=== PATIENT | male | born 1940 | race Caucasian/White ===

== ENCOUNTER 2019-09-13 20:29 | Inpatient (IN) ==
--- NOTE | 2019-09-13 20:48 | CT Scan Report ---
CT SCAN OF THE BRAIN WITHOUT IV CONTRAST CLINICAL HISTORY: Strokelike symptoms. COMPARISON STUDY: No priors. TECHNIQUE: Unenhanced axial CT scan of the brain is performed from the vertex to the skull base. A do se lowering technique was utilized adhering to the principles of ALARA. The patient was scanned twice due to motion artifact. The Examination is compromised by motion artifact. FINDINGS: Brain parenchyma: There are age-related involutional changes noting mild subcortical and periventric ular microangiopathic change. There is no hemorrhage, mass effect, or evidence of acute territorial i schemia by CT criteria. Estrada-white matter differentiation is preserved. No extra-axial fluid collecti on is seen. Ventricles, sulci, cisterns: Prominent secondary to involutional change. Intracranial vasculature: There is atherosclerotic calcification of the cavernous carotid and vertebr al arteries. Calvarium: Unremarkable. Sinuses and mastoids: Mild mucosal thickening is noted in the maxillary antra. The remaining visualiz ed paranasal sinuses are clear. The mastoid air cells are well pneumatized. Orbits: The bony orbits are grossly intact. IMPRESSION: There is no hemorrhage, mass effect, or evidence of acute territorial ischemia by CT azrat hector. ACT 112: Negative or not required by law. Electronically signed by: Sean Mccall M.D. 09/13/2019 8:47 PM
[2019-09-13] MEDS ORDERED: OPTIRAY 320 125ml IV PRN (20:49)
[2019-09-13] MEDS ORDERED: RACEPINEPHRINE 2.25% NEBU SOLN 0.5 ML VIAL NEB STA (20:51)
[2019-09-13 20:58] LABS: Hemoglobin 14.3 g/dL (14.0-18.0); Red Blood Count 4.78 M/uL (4.7-6.1); White Blood Count 9.66 K/uL (4.8-10.8)
--- NOTE | 2019-09-13 20:58 | Emergency Department Note ---
Impression & Plan Speech disturbance, Stroke-like symptoms, Difficulty swallowing, Hypertension, Gaze preference ED Provider Note NAME: IGOR YUEN AGE: 78 SEX: M : 1940 ARRIVES VIA: Ambulance INFORMANT: [Patient][ems] ED PROVIDER(S): [Sean Canales MD] CHIEF COMPLAINT: Possible stroke HISTORY OF PRESENT ILLNESS: The patient is a 78-year-old male who presents by EMS as a stroke alert. At 1944, about 1 hour ago, the patient suddenly had difficulty with speech. He was leaning to the right when he would stand. EMS was summoned and the patient was brought for evaluation. The patient states that he has been dizzy for several days. The speech issue though did not start until just prior to arrival. The patient also complains a headache that is moderate in severity. The patient does feel slightly short of breath. He has no arm or leg weakness. He has been in baseline health. There has been no abdominal pain or vomiting. No reported trauma. The patient does not take any blood thinners. No further history obtainable as the patient has very limited speech. Of note, the patient's did call in to talk with me. She states that the patient has been recently seeing a psychiatrist. He is on some new psychiatric medications, some of the meds are only a few days old. She is convinced that his medications have something to do with his presentation. REVIEW OF SYSTEMS: Unobtainable given the speech deficit/issue. PMHx/PSHx: See Below SOCIAL HISTORY: See Below. PHYSICAL EXAM: GENERAL: Patient is in mild distress, anxious HEENT: No acute trauma, normocephalic atraumatic, mucous membranes markedly dry, no nasal congestion, no scleral icterus. No throat erythema or exudate, no uvular edema. NECK: There is some occasional stridor with really deep inspiration, no adenopathy, no meningismus, trachea is midline. LUNGS: Clear to auscultation bilaterally, no wheeze, no rhonchi, breath sounds equal. HEART: Without murmurs gallops or rubs, regular rate and rhythm. ABDOMEN: Soft, nontender, bowel sounds positive, no hernias, no peritonitis. EXTREMITIES: No cyanosis or edema, full range of motion of all the joints without pain or difficulty, no signs for acute trauma. NEUROLOGIC: Oriented x 3, no acute motor or sensory deficits, no focal weakness. His speech is slurred and garbled. He seems hoarse. There is no facial droop. No extremity drift. The patient's gaze is to the right, he cannot look left. He does have some vertical nystagmus when looking up. SKIN: No rash, no jaundice, no diaphoresis. DIFFERENTIAL DIAGNOSIS: Infection, dehydration, metabolic abnormality, hypo/hyperglycemia, electrolyte disturbance, anemia, hypoxia, cardiac sources, intracerebral event, toxicologic, neurologic, uvular edema, pharyngitis, airway compromise, epiglottitis, vocal cord paralysis, as well as other pathologies. EMERGENCY DEPARTMENT COURSE/PROCEDURES: ECG: Indication was possible stroke. There is a normal sinus rhythm with a rate of 86. There is some artifact present. No ST elevation, no PVCs. QTC is 435. Continuous Cardiac Monitoring: An order was placed for continuous cardiac monitoring. The monitor shows a rate of 95 with normal sinus rhythm. Critical Care Note: I have personally spent greater than 55 minutes of critical care time in the direct management of this patient. This includes bedside care, interpretation of diagnostic studies, and testing, discussion with consultants, patient, and family members, and other required patient management activities. This 55 minutes is in excess of all separately billable procedures. MEDICAL DECISION MAKING: There is no leukocytosis or concerning anemia. No coagulopathy. No significant electrolyte abnormality or kidney failure. No worrisome liver enzyme elevation. EKG shows a sinus rhythm, no acute ischemia. Cardiac enzyme testing x1 is not consistent with acute cardiac injury. Urinalysis does not show infection. Brain CTA does not show acute bleed, there was no clot on the CT angiogram. Neck CTA does show an occlusion of the right vertebral artery which does have retrograde flow distally. Chest film did not show pneumonia or CHF on exam, the patient did have a gaze to the right. He had difficulty with his speech in that he could not get his words out, he was hoarse, he seemed to have a hard time swallowing. No extremity deficits, no facial droop. The patient received a 500 cc saline bolus. He was kept n.p.o. He was given IV labetalol, 10 mg. This was given for a very high blood pressure. The labetalol did work nicely. The patient was ordered for rectal aspirin. He was given a dose of IV Benadryl and was ordered for an a racemic epinephrine nebulizer. The epinephrine neb was ordered for the potential stridor heard at times. A stroke alert was called based on the EMS phone call. [facility] was involved via telemedicine. The patient is not a candidate for TPA as his dizzin ess and difficulty with balance have been ongoing for days. Stroke was a real concern though. An MRI, antiplatelet therapy was recommended. The patient's called, she was concerned that he had recently started a lot of different psychiatric medications. She felt this was somehow was related to his presentation. He was given 12.5 mg of IV Benadryl in case some of this was dystonia. I spoke to the patient, I talked with his , I spoke with the outpatient case manager. The on-call hospitalist has been consulted. Of note, the patient does seem more comfortable at present. His blood pressure is adequately controlled. He is breathing without difficulty. I am not convinced the Benadryl dosing made any real difference in the patient's symptoms. Past Med/Surg History Medical History Depression Hypertension Social History Preferred Language: Uzbek Feels Safe at Home: Yes Smoking Status: Former smoker Allergies Allergies Allergy/AdvReac Type Severity Reaction Status Date / Time No Known Allergies Allergy Unverified 09/13/19 22:14 Home Meds Home Medications Medication Instructions Recorded Confirmed albuterol sulfate [Ventolin HFA] 2 puff INHALATION QID PRN 09/13/19 09/13/19 buspirone 15 mg PO BID 09/13/19 09/13/19 clomipramine 25 mg PO UD 09/13/19 09/13/19 fluticasone propion-salmeterol 1 inh INHALATION BID 09/13/19 09/13/19 [Wixela Inhub] lisinopril 10 mg PO DAILY 09/13/19 09/13/19 propranolol 10 mg PO DAILY PRN 09/13/19 09/13/19 risperidone 0.25 mg PO BID 09/13/19 09/13/19 sildenafil 50 mg PO UD PRN 09/13/19 09/13/19 tiotropium bromide [Spiriva 2 puff INHALATION DAILY 09/13/19 09/13/19 Respimat] trazodone 50 mg PO HS PRN 09/13/19 09/13/19 triamcinolone acetonide 1 applic TOPICAL DAILY PRN 09/13/19 09/13/19 venlafaxine 75 mg PO BID 09/13/19 09/13/19 Results & Data (ED) Vital Signs Vital Signs - 24 hr 09/13/19 20:44 09/13/19 20:47 09/13/19 20:57 Temperature 36.0 C L Temperature Source Axillary Pulse Rate 96 H 94 H Pulse Rate [Right Finger] Pulse Rate from SpO2 Sensor Pulse Rhythm Regular Respiratory Rate 24 Respiratory Effort / Characteristics Non-Labored Spontaneous Respiratory Depth Normal Respiratory Pattern Regular Blood Pressure 201/92 H 201/92 H Blood Pressure Mean 128 107 Pulse Oximetry 95 95 95 Oxygen Delivery Method Room Air Room Air Room Air Sepsis Recent Fever Within 48 Hours No Sepsis New/Unexplained Change in Mental Status No Sepsis Action Taken by Nursing No Action Required 09/13/19 20:58 09/13/19 21:01 09/13/19 21:10 Temperature Temperature Source Pulse Rate 95 H Pulse Rate [Right Finger] 88 Pulse Rate from SpO2 Sensor 94 H 103 H Pulse Rhythm Respiratory Rate 20 Respiratory Effort / Characteristics Spontaneous Respiratory Depth Respiratory Pattern Blood Pressure 204/105 H Blood Pressure Mean 138 Pulse Oximetry 97 100 97 Oxygen Delivery Method Room Air Sepsis Recent Fever Within 48 Hours Sepsis New/Unexplained Change in Mental Status Sepsis Action Taken by Nursing 09/13/19 21:15 09/13/19 21:20 09/13/19 21:22 Temperature Temperature Source Pulse Rate 93 H 72 68 Pulse Rate [Right Finger] Pulse Rate from SpO2 Sensor 74 66 Pulse Rhythm Respiratory Rate Respiratory Effort / Characteristics Respiratory Depth Respiratory Pattern Blood Pressure 212/120 H 189/96 H Blood Pressure Mean 161 103 Pulse Oximetry 94 96 Oxygen Delivery Method Sepsis Recent Fever Within 48 Hours Sepsis New/Unexplained Change in Mental Status Sepsis Action Taken by Nursing 09/13/19 21:23 09/13/19 21:30 09/13/19 21:45 Temperature Temperature Source Pulse Rate 67 68 66 Pulse Rate [Right Finger] Pulse Rate from SpO2 Sensor 66 67 66 Pulse Rhythm Respiratory Rate 22 Respiratory Effort / Characteristics Respiratory Depth Respiratory Pattern Blood Pressure 179/97 H 187/99 H Blood Pressure Mean 129 133 Pulse Oximetry 97 98 98 Oxygen Delivery Method Room Air Sepsis Recent Fever Within 48 Hours Sepsis New/Unexplained Change in Mental Status Sepsis Action Taken by Nursing 09/13/19 21:56 09/13/19 22:00 09/13/19 22:10 Temperature Temperature Source Pulse Rate 71 69 65 Pulse Rate [Right Finger] Pulse Rate from SpO2 Sensor 70 69 65 Pulse Rhythm Respiratory Rate 21 18 20 Respiratory Effort / Characteristics Respiratory Depth Respiratory Pattern Blood Pressure 197/87 H 183/92 H 187/93 H Blood Pressure Mean 113 145 104 Pulse Oximetry 99 99 99 Oxygen Delivery Method Room Air Room Air Room Air Sepsis Recent Fever Within 48 Hours Sepsis New/Unexplained Change in Mental Status Sepsis Action Taken by Longterm Medications Current Medication List: was personally reviewed by me Laboratory Data Attestation: I reviewed the patient's lab results. Result diagrams: 09/13/19 20:50 09/13/19 20:50 Lab Results 09/13/19 09/13/19 09/13/19 Range/Units 20:50 20:50 20:50 WBC 9.66 (4.8-10.8) K/uL RBC 4.78 (4.7-6.1) M/uL Hgb 14.3 (14.0-18.0) g/dL POC Hgb (14.0-18.0) g/dl Hct 41.4 L (42-52) % POC Hct (42-52) % MCV 86.6 (80-100) fL MCH 29.9 (25-34) pg MCHC 34.5 (32-36) g/dL RDW Std Deviation 41.4 (36.4-46.3) fL RDW Coeff of Abigail 12.9 (11.5-14.5) % Plt Count 216 (130-400) K/uL MPV 10.2 (7.4-10.4) fL Immature Gran % (Auto) 0.6 % Neut % (Auto) 84.5 % Lymph % (Auto) 8.4 % [place] % (Auto) 6.1 % Eos % (Auto) 0.2 % Baso % (Auto) 0.2 % Immature Gran # (Auto) 0.06 H (0.00-0.02) K/uL Neut # (Auto) 8.16 H (1.4-6.5) K/uL Lymph # (Auto) 0.81 L (1.2-3.4) K/uL [place] # (Auto) 0.59 (0.11-0.59) K/uL Eos # (Auto) 0.02 (0-0.5) K/uL Baso # (Auto) 0.02 (0-0.2) K/uL PT 11.6 (9.0-12.0) Seconds INR 1.1 (0.9-1.1) APTT 26.8 (21.0-31.0) Seconds PTT Ratio 1.0 POC Sodium (135-144) mmol/L Sodium 132 L (136-145) mmol/L POC Potassium (3.3-5.0) mmol/L Potassium 3.6 (3.5-5.1) mmol/L POC Chloride (101-112) mmol/L Chloride 101 (98-107) mmol/L Carbon Dioxide 21 (21-32) mmol/L POC Total CO2 (24-31) mEq/l Anion Gap 10.0 (3-11) POC Anion Gap (16-25) mmol/L POC BUN (7-18) mg/dl BUN 15 (7-18) mg/dl Creatinine 1.12 (0.6-1.4) mg/dl POC Creatinine (0.6-1.3) mg/dl Est Cr Clr Drug Dosing 55.2 ml/min Est GFR ( Amer) 73.0 Est GFR (Non-Af Amer) 63.0 BUN/Creatinine Ratio 13.7 (10-20) Glucose 212 H (70-99) mg/dl POC Glucose (70-99) mg/dl POC Glucose (other) (70-99) mg/dl Calcium 8.6 (8.5-10.1) mg/dl POC Ioniz Calcium [place] (1.12-1.32) mmol/l Magnesium 1.9 (1.8-2.4) mg/dl Total Bilirubin 0.6 (0.2-1) mg/dl AST 12 L (15-37) U/L ALT 20 (12-78) U/L Alkaline Phosphatase 64 (45-117) U/L Troponin I < 0.015 (0-0.045) ng/ml Total Protein 6.5 (6.4-8.2) gm/dl Albumin 3.6 (3.4-5.0) gm/dl Globulin 2.9 (2.5-4.0) gm/dl Albumin/Globulin Ratio 1.2 (0.9-2) Urine Color Urine Appearance (Clear) Urine pH (4.5-7.5) Ur Specific [place] (1.000-1.030) Urine Protein (Negative) Urine Glucose (UA) (Negative) Urine Ketones (Negative) Urine Blood (Negative) Urine Nitrite (Negative) Urine Bilirubin (Negative) Urine Urobilinogen (Negative) Ur Leukocyte Esterase (Negative) Urine WBC (Auto) (0-5) /hpf Urine RBC (Auto) (0-4) /hpf U Hyaline Cast (Auto) (0-5) /lpf U Epithel Cells (Auto) (0-5) /lpf Urine Bacteria (Auto) (Negative) 09/13/19 09/13/19 09/13/19 Range/Units 20:53 20:54 21:20 WBC (4.8-10.8) K/uL RBC (4.7-6.1) M/uL Hgb (14.0-18.0) g/dL POC Hgb 13.9 L (14.0-18.0) g/dl Hct (42-52) % POC Hct 41 L (42-52) % MCV (80-100) fL MCH (25-34) pg MCHC (32-36) g/dL RDW Std Deviation (36.4-46.3) fL RDW Coeff of Abigail (11.5-14.5) % Plt Count (130-400) K/uL MPV (7.4-10.4) fL Immature Gran % (Auto) % Neut % (Auto) % Lymph % (Auto) % [place] % (Auto) % Eos % (Auto) % Baso % (Auto) % Immature Gran # (Auto) (0.00-0.02) K/uL Neut # (Auto) (1.4-6.5) K/uL Lymph # (Auto) (1.2-3.4) K/uL [place] # (Auto) (0.11-0.59) K/uL Eos # (Auto) (0-0.5) K/uL Baso # (Auto) (0-0.2) K/uL PT (9.0-12.0) Seconds INR (0.9-1.1) APTT (21.0-31.0) Seconds PTT Ratio POC Sodium 132 L (135-144) mmol/L Sodium (136-145) mmol/L POC Potassium 3.7 (3.3-5.0) mmol/L Potassium (3.5-5.1) mmol/L POC Chloride 100 L (101-112) mmol/L Chloride (98-107) mmol/L Carbon Dioxide (21-32) mmol/L POC Total CO2 20 L (24-31) mEq/l Anion Gap (3-11) POC Anion Gap 17.0 (16-25) mmol/L POC BUN 15 (7-18) mg/dl BUN (7-18) mg/dl Creatinine (0.6-1.4) mg/dl POC Creatinine 0.9 (0.6-1.3) mg/dl Est Cr Clr Drug Dosing ml/min Est GFR ( Amer) Est GFR (Non-Af Amer) BUN/Creatinine Ratio (10-20) Glucose (70-99) mg/dl POC Glucose 204 H (70-99) mg/dl POC Glucose (other) 210 H (70-99) mg/dl Calcium (8.5-10.1) mg/dl POC Ioniz Calcium [place] 1.15 (1.12-1.32) mmol/l Magnesium (1.8-2.4) mg/dl Total Bilirubin (0.2-1) mg/dl AST (15-37) U/L ALT (12-78) U/L Alkaline Phosphatase (45-117) U/L Troponin I (0-0.045) ng/ml Total Protein (6.4-8.2) gm/dl Albumin (3.4-5.0) gm/dl Globulin (2.5-4.0) gm/dl Albumin/Globulin Ratio (0.9-2) Urine Color Yellow Urine Appearance Clear (Clear) Urine pH 7.5 (4.5-7.5) Ur Specific [place] 1.039 H (1.000-1.030) Urine Protein 2+ H (Negative) Urine Glucose (UA) 1+ H (Negative) Urine Ketones 1+ H (Negative) Urine Blood Negative (Negative) Urine Nitrite Negative (Negative) Urine Bilirubin Negative (Negative) Urine Urobilinogen Negative (Negative) Ur Leukocyte Esterase Negative (Negative) Urine WBC (Auto) 1-5 (0-5) /hpf Urine RBC (Auto) 0-4 (0-4) /hpf U Hyaline Cast (Auto) 0 (0-5) /lpf U Epithel Cells (Auto) 10-20 H (0-5) /lpf Urine Bacteria (Auto) Negative (Negative) Administered Medications Ioversol (Optiray 320 125ml) 116 ml IV ONCE PRN PRN Reason: Interaction Checking Stop: 09/17/19 20:48 Last Admin: 09/13/19 20:49 Dose: 116 ml Documented by: [id number] Discontinued Medications Aspirin (Aspirin) 600 mg CO NOW STA Stop: 09/13/19 21:41 Last Admin: 09/13/19 21:58 Dose: 600 mg Documented by: [id number] Diphenhydramine HCl (Benadryl) Confirm Administered Dose 50 mg .ROUTE .STK-MED ONE Stop: 09/13/19 21:45 Last Admin: 09/13/19 21:58 Dose: 12.5 mg Documented by: [id number] Epinephrine (Raccemic Epinephrine 2.25% 0.5ml) 0.5 ml NEB NOW STA Stop: 09/13/19 20:52 Last Admin: 09/13/19 20:57 Dose: 0.5 ml Documented by: [id number] Sodium Chloride (Nss 1000ml) 500 mls @ 999 mls/hr IV .Q31M ONE Stop: 09/13/19 22:10 Last Admin: 09/13/19 21:46 Dose: 999 mls/hr Documented by: [id number] Labetalol HCl (Normodyne) 10 mg IV NOW STA Stop: 09/13/19 21:10 Last Admin: 09/13/19 21:16 Dose: 10 mg Documented by: [id number] Cosigned by: [id number] Labetalol HCl (Normodyne) Confirm Administered Dose 5 mg IV .STK-MED ONE Stop: 09/13/19 21:11 Last Admin: 09/13/19 21:11 Dose: Not Given Documented by: [id number] Imaging Data Radiologist's Impression: CT ANGIOGRAM OF THE BRAIN; CT ANGIOGRAM OF THE NECK CLINICAL HISTORY: Strokelike symptoms. COMPARISON STUDY: Unenhanced CT of the brain performed the same day 09/13/2019. TECHNIQUE: Following the IV administration of 116 of Optiray 320, CT angiogram of the head and neck was performed from the aortic arch to the vertex. Images are reviewed in the axial, sagittal, and coronal planes. 3-D MIPS images are c reated and assessed. IV contrast was administered without complication. All measurements were calculated based on NASCET criteria. A dose lowering technique was utilized adhering to the principles of ALARA. CT DOSE: 1790.67 mGy.cm FINDINGS: Brain parenchyma: There is age-related involutional change noting mild subcortical and periventricular microangiopathic disease. There is no hemorrhage, mass effect, or evidence of acute territorial ischemia by CT criteria. There is no evidence of enhancing mass lesion on the angiogram phase images. The ventricles, sulci, and cisterns are prominent secondary to involutional change. Estrada-white matter differentiation is preserved. No extra- axial fluid collection is seen. Thoracic aorta: There is atherosclerotic calcification of the thoracic aorta. Vi sualized portions of the thoracic aorta are normal in caliber. The aortic arch demonstrates standard 3-vessel anatomy. Right carotid arterial system: The right common carotid artery is widely patent, as are the right internal and external carotid arteries. Atherosclerotic plaque is noted in the carotid bulb. Left carotid arterial system: The left common carotid artery is widely patent, as are the left internal and external carotid arteries. Atherosclerotic calcification is noted in the carotid bulb. Vertebral arteries: The left vertebral artery is widely patent. There is high- grade stenosis of the origin of the right vertebral artery. The proximal in the mid portions of the right vertebral artery in the neck are patent. There is thrombosis of the distal right vertebral artery at the level of C2. This is reconstituted via retrograde flow just below the basilar. The vertebral arteries are codominant Subclavian arteries: Widely patent bilaterally. Intracranial vasculature: There is atherosclerotic calcification of the cavernous carotid and vertebral arteries. The internal carotid arteries are patent at the skull base, as are the anterior and middle cerebral arteries bilaterally. The basilar artery and the left vertebral artery at the skull base are patent. There is thrombosis of the right vertebral artery at the skull base. This is reconstituted via retrograde flow just below the basilar. The posterior cerebral arteries are patent. There is high-grade stenosis of the P1 segment on the right There is no aneurysm or high-grade stenosis identified. Jugular veins: Patent bilaterally. Dural sinuses: Patent. Lung apices: Emphysematous change is noted in the upper lobes. Upper lobe lung parenchyma is otherwise clear. Soft tissues: The visualized pharyngeal soft tissues are normal in appearance noting angiographic phase technique. The oropharyngeal airway appears widely patent. The thyroid gland is enlarged and heterogeneous. Low-attenuation nodules measure up to 2 cm. The salivary glands are normal in appearance. No cervical lymphadenopathy is seen. Skeletal structures: The skeletal structures are osteopenic. The calvarium appears intact. The cervical spine is maintained noting mild spondylosis. No lytic or blastic lesion is seen. Orbits: The bony orbits are intact. Orbital contents are normal in appearance. Sinuses and mastoids: There is mild mucosal thickening within the maxillary antra. Retention cysts on the right measure up to 1.8 cm. The remaining paranasal sinuses are clear. The mastoid air cells are well pneumatized. IMPRESSION: 1. There is no hemorrhage, mass effect, or evidence of acute territorial ischemia by CT criteria noting angiographic phase technique. 2. 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 This is reconstituted via retrograde flow just below the basilar. 3. There is high-grade stenosis at the origin of the right vertebral artery. 4. There is no evidence of hemodynamically significant carotid artery stenosis. The left vertebral artery is patent. 5. The intracranial vessels are patent. 6. There is focal high-grade stenosis of the P1 segment of the right posterior cerebral artery. 7. Emphysema. 8. Enlarged, heterogeneous, and multinodular thyroid gland. 9. Additional findings as above. SINGLE VIEW CHEST CLINICAL HISTORY: Generalized weakness. FINDINGS: An AP, portable, upright chest radiograph is obtained. No prior studies are available for comparison at the time of dictation. The examination is degraded by portable technique and patient rotation. The heart is enlarged noting atherosclerotic calcification of the thoracic aorta. Emphysematous change is noted. There is bibasilar scarring/atelectasis. No airspace consolidation or large pleural effusion is identified. No pneumothorax is seen. The skeletal structures are osteopenic. The bony thorax is grossly intact. IMPRESSION: Cardiomegaly and emphysema with no acute cardiopulmonary abnormality. Blood Pressure Blood Pressure Findings: Elevated blood pressure Blood Pressure Disposition: further management by hospitalist Discharge Plan Visit Data Chief Complaint: Stroke Alert Stated Complaint: STROKE ALERT ED Provider: Sean Canales Discharge Problem: Speech disturbance, Stroke-like symptoms, Difficulty swallowing, Hypertension, Gaze preference Patient Disposition: Being Evaluated by Hospitalist Condition: Fair Forms Stand Alone Forms: [facility] [place] [employer] Mobile Digital Prescriptions Prescriptions: No Action fluticasone propion-salmeterol [Wixela Inhub] 250-50 mcg/dose blister with device 1 inh INHALATION BID RF: 0 venlafaxine 75 mg tablet 75 mg PO BID RF: 0 trazodone 50 mg tablet 50 mg PO HS PRN (Reason: Sleep) RF: 0 sildenafil 50 mg Tablet 50 mg PO UD PRN (Reason: Sexual Activity) RF: 0 triamcinolone acetonide 0.1 % cream 1 applic TOPICAL DAILY PRN (Reason: Itching) RF: 0 propranolol 10 mg Tablet 10 mg PO DAILY PRN (Reason: Anxiety) RF: 0 lisinopril 10 mg tablet 10 mg PO DAILY RF: 0 albuterol sulfate [Ventolin HFA] 90 mcg/actuation Hfa Aerosol Inhaler 2 puff INHALATION QID PRN (Reason: Shortness Of Breath Or Wheezing) RF: 0 clomipramine 25 mg Capsule 25 mg PO UD RF: 0 risperidone 0.5 mg tablet 0.25 mg PO BID RF: 0 buspirone 15 mg tablet 15 mg PO BID RF: 0 Spiriva Respimat 2.5 mcg/actuation mist 2 puff INHALATION DAILY RF: 0 Referrals Referrals: Gomez Swenson MD [Primary Care Provider] - Discharge Problem: Speech disturbance Qualifiers: Speech disturbance type: dysarthria Qualified Code(s): R47.1 - Dysarthria and anarthria Difficulty swallowing Qualifiers: Dysphagia type: unspecified Qualified Code(s): R13.10 - Dysphagia, unspecified Hypertension Qualifiers: Hypertension type: unspecified Qualified Code(s): I10 - Essential (primary) hypertension
[2019-09-13 20:59] LABS: Basophils # (auto) 0.02 K/uL (0-0.2); Basophils % (auto) 0.2 %; Eosinophils # (auto) 0.02 K/uL (0-0.5); Eosinophils % (auto) 0.2 %; Hematocrit (blood only) 41.4 % (42-52); Immature Granulocytes # (auto) 0.06 K/uL (0.00-0.02); Immature Granulocytes % (auto) 0.6 %; Lymphocytes # (auto) 0.81 K/uL (1.2-3.4); Lymphocytes % (auto) 8.4 %; Mean Corpuscular Hemoglobin 29.9 pg (25-34); Mean Corpuscular Hgb Conc 34.5 g/dL (32-36); Mean Corpuscular Volume 86.6 fL (80-100); Mean Platelet Volume 10.2 fL (7.4-10.4); Monocytes # (auto) 0.59 K/uL (0.11-0.59); Monocytes % (auto) 6.1 %; Neutrophils # (auto) 8.16 K/uL (1.4-6.5); Neutrophils % (auto) 84.5 %; Platelet Count 216 K/uL (130-400); RDW Coefficient of Variation 12.9 % (11.5-14.5); RDW Standard Deviation 41.4 fL (36.4-46.3)
--- NOTE | 2019-09-13 21:03 | CT Scan Report ---
CT ANGIOGRAM OF THE BRAIN; CT ANGIOGRAM OF THE NECK CLINICAL HISTORY: Strokelike symptoms. COMPARISON STUDY: Unenhanced CT of the brain performed the same day 09/13/2019. TECHNIQUE: Following the IV administration of 116 of Optiray 320, CT angiogram of the head and neck w as performed from the aortic arch to the vertex. Images are reviewed in the axial, sagittal, and courtney nal planes. 3-D MIPS images are created and assessed. IV contrast was administered without complicati on. All measurements were calculated based on NASCET criteria. A dose lowering technique was utilize d adhering to the principles of ALARA. CT DOSE: 1790.67 mGy.cm FINDINGS: Brain parenchyma: There is age-related involutional change noting mild subcortical and periventricula r microangiopathic disease. There is no hemorrhage, mass effect, or evidence of acute territorial isc hemia by CT criteria. There is no evidence of enhancing mass lesion on the angiogram phase images. Th e ventricles, sulci, and cisterns are prominent secondary to involutional change. Estrada-white matter d ifferentiation is preserved. No extra-axial fluid collection is seen. Thoracic aorta: There is atherosclerotic calcification of the thoracic aorta. Visualized portions of the thoracic aorta are normal in caliber. The aortic arch demonstrates standard 3-vessel anatomy. Right carotid arterial system: The right common carotid artery is widely patent, as are the right int ernal and external carotid arteries. Atherosclerotic plaque is noted in the carotid bulb. Left carotid arterial system: The left common carotid artery is widely patent, as are the left customer success intern al and external carotid arteries. Atherosclerotic calcification is noted in the carotid bulb. Vertebral arteries: The left vertebral artery is widely patent. There is high-grade stenosis of the o rigin of the right vertebral artery. The proximal in the mid portions of the right vertebral artery i n the neck are patent. There is thrombosis of the distal right vertebral artery at the level of C2. T his is reconstituted via retrograde flow just below the basilar. The vertebral arteries are codominan t Subclavian arteries: Widely patent bilaterally. Intracranial vasculature: There is atherosclerotic calcification of the cavernous carotid and vertebr al arteries. The internal carotid arteries are patent at the skull base, as are the anterior and midd le cerebral arteries bilaterally. The basilar artery and the left vertebral artery at the skull base are patent. There is thrombosis of the right vertebral artery at the skull base. This is reconstitute d via retrograde flow just below the basilar. The posterior cerebral arteries are patent. There is hi gh-grade stenosis of the P1 segment on the right There is no aneurysm or high-grade stenosis identifi ed. Jugular veins: Patent bilaterally. Dural sinuses: Patent. Lung apices: Emphysematous change is noted in the upper lobes. Upper lobe lung parenchyma is otherwis e clear. Soft tissues: The visualized pharyngeal soft tissues are normal in appearance noting angiographic pha se technique. The oropharyngeal airway appears widely patent. The thyroid gland is enlarged and heter ogeneous. Low-attenuation nodules measure up to 2 cm. The salivary glands are normal in appearance. N o cervical lymphadenopathy is seen. Skeletal structures: The skeletal structures are osteopenic. The calvarium appears intact. The cervic al spine is maintained noting mild spondylosis. No lytic or blastic lesion is seen. Orbits: The bony orbits are intact. Orbital contents are normal in appearance. Sinuses and mastoids: There is mild mucosal thickening within the maxillary antra. Retention cysts on the right measure up to 1.8 cm. The remaining paranasal sinuses are clear. The mastoid air cells are well pneumatized. IMPRESSION: 1. There is no hemorrhage, mass effect, or evidence of acute territorial ischemia by CT criteria noti ng angiographic phase technique. 2. 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 This is reconst ituted via retrograde flow just below the basilar. 3. There is high-grade stenosis at the origin of the right vertebral artery. 4. There is no evidence of hemodynamically significant carotid artery stenosis. The left vertebral ar ronna is patent. 5. The intracranial vessels are patent. 6. There is focal high-grade stenosis of the P1 segment of the right posterior cerebral artery. 7. Emphysema. 8. Enlarged, heterogeneous, and multinodular thyroid gland. 9. Additional findings as above. ACT 112: Negative or not required by law. Electronically signed by: Sean Mccall M.D. 09/13/2019 9:01 PM
[2019-09-13 21:08] LABS: iSTAT Creatinine 0.9 mg/dl (0.6-1.3); iSTAT Hemoglobin 13.9 g/dl (14.0-18.0); iSTAT Ionized Calcium 1.15 mmol/l (1.12-1.32); iSTAT Potassium 3.7 mmol/L (3.3-5.0)
[2019-09-13] MEDS ORDERED: LABETALOL HCL IV 5 MG/ML 20ML IV STA (21:09)
[2019-09-13] MEDS ORDERED: LABETALOL HCL IV 5 MG/ML 20ML IV ONE (21:10)
--- NOTE | 2019-09-13 21:10 | XRay Report ---
SINGLE VIEW CHEST CLINICAL HISTORY: Generalized weakness. FINDINGS: An AP, portable, upright chest radiograph is obtained. No prior studies are available for c omparison at the time of dictation. The examination is degraded by portable technique and patient ro tation. The heart is enlarged noting atherosclerotic calcification of the thoracic aorta. Emphysemato us change is noted. There is bibasilar scarring/atelectasis. No airspace consolidation or large pleur al effusion is identified. No pneumothorax is seen. The skeletal structures are osteopenic. The bony thorax is grossly intact. IMPRESSION: Cardiomegaly and emphysema with no acute cardiopulmonary abnormality. ACT 112: Negative or not required by law. Electronically signed by: Sean Mccall M.D. 09/13/2019 9:08 PM
[2019-09-13 21:21] LABS: Alanine Aminotransferase 20 U/L (12-78); Albumin Level 3.6 gm/dl (3.4-5.0); Aspartate Aminotransferase 12 U/L (15-37); BUN Creatinine Ratio 13.7 (10-20); Blood Urea Nitrogen 15 mg/dl (7-18); Calcium 8.6 mg/dl (8.5-10.1); Carbon Dioxide 21 mmol/L (21-32); Chloride 101 mmol/L (98-107); Creatinine Clr Calc Pharmacy 55.2 ml/min; Glucose 212 mg/dl (70-99); INR 1.1 (0.9-1.1); Magnesium 1.9 mg/dl (1.8-2.4); Partial Thromboplastin Time 26.8 Seconds (21.0-31.0); Potassium 3.6 mmol/L (3.5-5.1); Prothrombin Time 11.6 Seconds (9.0-12.0); Sodium 132 mmol/L (136-145)
[2019-09-13 21:26] LABS: Albumin Globulin Ratio 1.2 (0.9-2); Alkaline Phosphatase 64 U/L (45-117); Bilirubin,Total 0.6 mg/dl (0.2-1); Globulin 2.9 gm/dl (2.5-4.0); Total Protein 6.5 gm/dl (6.4-8.2); Troponin I < 0.015 ng/ml (0-0.045)
[2019-09-13] MEDS ORDERED: SODIUM CHLORIDE 0.9% 1000ML 500 ML IV ONE (21:40)
[2019-09-13] MEDS ORDERED: ASPIRIN 600 MG SUPP PR STA (21:40)
[2019-09-13 21:43] LABS: Appearance Urine Clear (Clear); Bacteria Urine Automated Negative (Negative); Bilirubin Urine Negative (Negative); Blood Urine Negative (Negative); Cast Urine Automated 0 /lpf (0-5); Color Urine Yellow; Glucose Urine UA 1+ (Negative); Ketones Urine 1+ (Negative); Leukocyte Esterase Urine Negative (Negative); Nitrite Urine Negative (Negative); RBC Urine Automated 0-4 /hpf (0-4); Specific Gravity Urine 1.039 (1.000-1.030); Urobilinogen Urine Negative (Negative); pH Urine 7.5 (4.5-7.5)
[2019-09-13] MEDS ORDERED: DiphenhydrAMINE HCL 50 MG/ML VIAL ONE (21:44)
[2019-09-13 21:56] LABS: Protein Urine 2+ (Negative); Sulfosalicylic Acid Urine Positive (Negative)
[2019-09-13 22:30] LABS: Thyroid Stimulating Hormone 0.419 uIu/ml (0.300-4.500)
[2019-09-14] MEDS ORDERED: NITROGLYCERIN SL 0.4 MG/TAB TAB SL PRN (00:38)
[2019-09-14] MEDS ORDERED: ALBUTEROL HFA 8 GM INHALER INH PRN (00:38)
[2019-09-14] MEDS ORDERED: PHARMACIST DISCHARGE MED REC CONSULT PRN (00:38)
[2019-09-14] MEDS ORDERED: ONDANSETRON INJ 2 MG/ML 2 ML VIAL IV PRN (00:38)
[2019-09-14] MEDS ORDERED: LABETALOL HCL IV 5 MG/ML 20ML IV PRN (00:38)
[2019-09-14] MEDS ORDERED: GLUCAGON FOR INJ 1 MG VIAL IM PRN (01:00)
[2019-09-14] MEDS ORDERED: GLUCOSE 10 TABS/TUBE PO PRN (01:00)
[2019-09-14] MEDS ORDERED: DEXTROSE 50% 50 ML SYRINGE IV PRN (01:00)
[2019-09-14] MEDS ORDERED: CARBOHYDRATES FOR HYPOGLYCEMIA PO PRN (01:00)
[2019-09-14] MEDS ORDERED: GLUCOSE 40% GEL 15 GM TUBE PO PRN (01:00)
[2019-09-14] MEDS: SODIUM CHLORIDE 0.9% 1000ML 1,000 ML IV SCH ×3 (01:24→19:29)
--- NOTE | 2019-09-14 01:30 | History and Physical Report ---
DATE OF ADMISSION: 09/13/2019 CHIEF COMPLAINT: Stroke-like symptoms. HISTORY OF PRESENT ILLNESS: This is a 78-year-old male with past medical history significant for hyperlipidemia, prediabetes, COPD, chronic rhinitis, hypertension, chronic kidney disease stage III, nocturia, psoriasis, recurrent depression, erectile dysfunction, generalized anxiety disorder, history of prostate cancer, history of mixed obsessional thoughts and acts, who lives with his , was brought in because of stroke-like symptoms. The patient was having some dizziness and balance issues for a few days. Today in the evening around 1945, the patient suddenly had difficulties with speech. He was leaning to the right side when he stood and he was brought in here and stroke alert was called. Except for difficulties speaking, the patient's other cognitive function is fine and he was able to obey commands and moves extremities. He was not a stroke TPA candidate as because of symptoms are going on for a few days. As per Anna neurologist question of some small midline stroke. CT of the head was unremarkable. 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 Focal high grade stenosis at the P1 segment of the right posterior cerebral artery. Neck CTA, no evidence of hemodynamically significant carotid artery stenosis. Later, the called and said that recently psych medications are changed and she was thinking mostly the psych medications causing the symptoms, ER tried IV Benadryl for any dystonia reaction from his psych meds. Currently resting comfortably and hemodynamically stable. Initially blood pressure was high, received labetalol. Neurology recommended to keep his systolic blood pressure greater 160-170. Except for his speech difficulties and some difficulty swallowing, he is doing fine, resting comfortably. He had some headache today. His gazes still towards to the right side and he has some blurred vision. Denies any earache, no runny nose, no sore throat, no cough, no fever, no chills, no chest pain, no shortness of breath, was with some mild nausea, no vomiting, no abdominal pain. Otherwise, normal bowel and bladder movements. No rash. Although the speech is not clear, he was able to answer the questions. ALLERGIES: No known drug allergies. PAST MEDICAL HISTORY: As mentioned above. PAST SURGICAL HISTORY: Colonoscopy, dental surgery, Mohs stage I surgery, needle punch biopsy of the prostate, prostatectomy radical in 2004, tonsillectomy, adenoidectomy. MEDICATIONS: The patient is on Advair Diskus one puff b.i.d., buspirone 15 mg p.o. b.i.d., clomipramine 25 mg one capsule b.i.d., MiraLax 17 grams p.o. daily p.r.n., Inderal 10 mg p.o. daily p.r.n. for anxiety, Risperdal 0.25 mg p.o. b.i.d., trazodone 50 mg p.o. at bedtime p.r.n., Effexor 75 mg p.o. b.i.d., lisinopril 10 mg p.o. daily, Spiriva 2 puffs inhalation daily, Ventolin 2 puffs q. 6 hours p.r.n. FAMILY HISTORY: Significant for mother had breast cancer. Father had CAD and at age of 54, he was a smoker, sister has diverticulosis and alcoholism. SOCIAL HISTORY: Former smoker, quit in 2002. Smoked 2 packs a day for 47 years. No alcohol use, no drug use. REVIEW OF SYMPTOMS: As per HPI. Rest of review of symptoms negative. PHYSICAL EXAMINATION: GENERAL: The patient is of moderate build, not in acute distress. VITAL SIGNS: Temperature 36, pulse 65, respiratory rate 20, blood pressure 187/93, oxygen 99% room air. HEENT: Head atraumatic. Gaze to the right side. Pupils equal, round, and reactive to light. NECK: No neck masses. Supple. CARDIOVASCULAR: S1, S2, regular rate and rhythm, no murmur, no gallop. RESPIRATORY SYSTEM: Normal AP diameter. No accessory muscle use. No wheezing, no crackles. ABDOMEN: Soft, bowel sounds present, nontender. No distention. CENTRAL NERVOUS SYSTEM: Alert and oriented. Speech is slurred. Power 5/5 in all extremities. No pronator drift. Able to lift and hold his lower extremities. Rgdo-ot-plxb test normal. Qzqscw-ml-sdao test normal. Coordination of movement normal. Sensation is intact. Position sense intact. EXTREMITIES: No edema, no erythema. LABORATORY DATA: WBC 9.6, hemoglobin 14.3, hematocrit 41.4, platelets 216. PT 11.6, INR 1.1, APTT 26.8. Sodium 132, potassium 3.6, chloride 101, CO2 21, BUN 15, creatinine 1.1, serum glucose 212, calcium 8.6, magnesium 1.9, total bilirubin 0.6, AST 12, ALT 20, alkaline phosphatase of 64. Troponin I less than 0.015. TSH 0.4. Urinalysis, +1 glucose, +1 ketones, +2 proteins. IMAGING: CT of the head, no acute findings. CT of the head and neck, complete thrombus of the distal right vertebral artery beginning at C2. This was reconstituted via retrograde flow just below the basilar, there is a high grade stenosis at the origin of the right vertebral artery. There is no evidence of hemodynamically significant carotid artery stenosis. The left vertebral artery is patent. The intracranial vessels are patent. There is a focal high grade stenosis of the P1 segment of the right posterior cerebral artery, emphysema and large heterogeneous multinodular thyroid gland. Chest x-ray, no acute findings. EKG: Normal sinus rhythm, rate of 86, no previous EKG available. ASSESSMENT AND PLAN: This is a 78-year-old male who presents with stroke-like symptoms. 1. Stroke-like symptoms: The patient is having some dizziness and balance issues for the last few days, but today suddenly at evening, has difficulty speaking. Stroke alert was called because symptoms were going for a few days, TPA was not given. CT of the head was okay, but CT of the head and neck showed complete thrombus of the distal right vertebral artery with reconstituted retrograde flow just below the basilar, high grade stenosis of the origin of right vertebral artery, left vertebral artery is patent. As per Lorida neurology he may have had a small mid brain stroke recommended aspirin and MRI scan and to keep the systolic blood pressure greater than 160-170.There was question of dystonia reaction from his psych medications and IV Benadryl was given. We will follow the MRI results. Currently, the patient has had difficulty swallowing. Speech therapy, PT, OT .Aspirin per rectal and will follow his lipid profile, HbA1c levels. Await neuro evaluation in a.m. If he is not able to take his p.o. medication tomorrow, may need NG tube to prevent any withdrawal from his psychiatry medications. 2. Chronic obstructive pulmonary disease, moderate. Continue his home inhalers, currently stable. 3. History of prediabetes. We will place him on insulin sliding scale. Follow hemoglobin A1c levels. 4. Hyperlipidemia, currently not on medication. Follow lipid profile. 5. Chronic kidney disease stage III, seems stable. We will follow the labs. 6. Hypertension, on lisinopril. Currently, cannot take orally, I will place him on IV labetalol for systolic blood pressure greater than 200 to allow permissive hypertension. 7. History of generalized anxiety disorder, history of depression, history of mixed obsessional thoughts. He is on multiple psych meds, he is on venlafaxine, trazodone, BuSpar, clomipramine and Risperdal. called the ER and said some of the psych medications are recently changed that could be causing the symptoms. Tried to call his could not contact her. Currently we are holding the psych medications, if continue to be npo may need NG tube to give the meds. 8.. Deep venous thrombosis prophylaxis, sequential compression devices. DISPOSITION: Closely monitor in the tele floor. Level 1 full code. MTDD
[2019-09-14] MEDS: INSULIN ASPART 100 UNITS/ML 3 ML PEN SC SCH ×4 (01:31→17:14)
[2019-09-14 05:03] LABS: Basophils # (auto) 0.01 K/uL (0-0.2); Basophils % (auto) 0.1 %; Eosinophils # (auto) 0.01 K/uL (0-0.5); Eosinophils % (auto) 0.1 %; Hematocrit (blood only) 45.8 % (42-52); Hemoglobin 16.5 g/dL (14.0-18.0); Immature Granulocytes # (auto) 0.06 K/uL (0.00-0.02); Immature Granulocytes % (auto) 0.4 %; Lymphocytes # (auto) 0.78 K/uL (1.2-3.4); Lymphocytes % (auto) 5.6 %; Mean Corpuscular Hemoglobin 30.6 pg (25-34); Mean Platelet Volume 10.8 fL (7.4-10.4); Monocytes # (auto) 0.96 K/uL (0.11-0.59); Monocytes % (auto) 6.9 %; Neutrophils # (auto) 12.18 K/uL (1.4-6.5); Neutrophils % (auto) 86.9 %; Platelet Count 240 K/uL (130-400); RDW Coefficient of Variation 12.9 % (11.5-14.5); RDW Standard Deviation 39.7 fL (36.4-46.3); Red Blood Count 5.39 M/uL (4.7-6.1)
[2019-09-14 05:38] LABS: BUN Creatinine Ratio 15.1 (10-20); Calcium 9.4 mg/dl (8.5-10.1); Creatinine Clr Calc Pharmacy 71.1 ml/min; Est GFR (African American) 96.5; Est GFR (Non-African American) 83.2; Potassium 3.4 mmol/L (3.5-5.1)
[2019-09-14 06:19] LABS: Estimated Average Glucose 108 mg/dl; Hemoglobin A1C 5.4 % (4.5-5.6)
[2019-09-14] MEDS: FLUTICASONE/VILANTEROL 200/25MCG 14 PUFFS/INHALER INH SCH (08:44)
[2019-09-14] MEDS: POTASSIUM ACETATE 10 MEQ in 0.9 % SODIUM CHLORIDE 100 ML IV SCH ×2 (08:44→09:38)
[2019-09-14] MEDS: UMECLIDINIUM BROMIDE 62.5MCG/BLISTER 7 PUFFS/INHALER INH SCH (08:44)
--- NOTE | 2019-09-14 09:34 | XRay Report ---
XR chest 1V portable CLINICAL HISTORY: Concern for aspiration. Hypoxia. COMPARISON STUDY: Chest radiograph September 13, 2019. FINDINGS: Patient is rotated. Mild cardiomegaly is noted without evidence for pulmonary edema. There is minimal right basilar opacity. No pneumothorax or pleural effusion is noted. There is no lobar con solidation. IMPRESSION: 1. Minimal right basilar opacity. 2. Mild cardiomegaly without evidence for pulmonary edema. ACT 112: Negative or not required by law. Electronically signed by: Donavan Moffett M.D. 09/14/2019 9:33 AM
[2019-09-14] MEDS: ASPIRIN 300 MG SUPP PR SCH (09:36)
--- NOTE | 2019-09-14 09:58 | Hospitalist Progress Note ---
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 Patient stated he does not want to be resuscitated or intubated but is ok with all other care. CXR at this time does not show any aspirations. Patient is at high risk for aspiration. Will continue aspiration precautions and oxygen supplementation Will continue [place] aspirin for now Discussed with Neurologist Dr Le. Will follow up Neurologist's recommendation Continue permissive hypertension fro now and get MRI as soon as able to. Continue all supportive care Shrestha for urine output monitoring Replete electrolytes I called and updated on patient's clinical situation Prognosis is guarded at this time (3) Hypertension: Allow permissive hypertension as discussed above Admission and Anticipated Discharge Date Admission Date: September 13, 2019 Subjective Patient seen and examined this morning Patient having some difficulties with speech and swallowing Denied any chest pain, shortness Denied any headache, blurry vision or weakness of extremities Patient is awake, alert, follows command and has dysarthria. Physical Exam Constitutional: well developed and + acute distress (mild resp distress with gurgling sounds in throat) Eyes: Anisocoria (miosis on right pupil compared to left) ENMT: Ears: no hearing impairment External ear and nose normal Respiratory: + respiratory distress (Mild respiratory distress with gurgling sounds in throat) Transmitted breath sounds Cardiovascular: Rate/Rhythm: regular rate and regular rhythm Extremities: no pedal edema S1 S2 Gastrointestinal (Abdomen): normal bowel sounds, soft, nontender, no hepatosplenomegaly Musculoskeletal: no cyanosis or clubbing, extremities motor strength 5/5 Neurologic: normal touch/pain/proprioception Anisocoria [right pupil smaller than left] Dysarthric Patient understands and obeys commands appropriately. No facial palsy noted Power is equal in all extremities Results & Data Results & Data ([facility]) Vital Signs (Past 12 Hours) Vital Signs Temp Pulse Pulse Resp BP BP BP 09/14/19 07:54 36.4 C L 106 H 20 201/107 H 209/109 H 09/14/19 03:51 36.4 C L 93 H 20 180/106 H 09/14/19 01:44 48 L 09/14/19 01:42 78 09/14/19 01:36 192/101 H 09/14/19 00:38 36.3 C L 74 22 203/109 H 09/14/19 00:33 36.6 C 80 20 203/109 H 09/14/19 00:08 69 16 185/98 H 09/13/19 22:10 65 20 187/93 H 09/13/19 22:00 69 18 183/92 H Pulse Ox 09/14/19 07:54 86 L 09/14/19 03:51 93 09/14/19 01:44 09/14/19 01:42 09/14/19 01:36 09/14/19 00:38 96 09/14/19 00:33 95 09/14/19 00:08 99 09/13/19 22:10 99 09/13/19 22:00 99 Laboratory Results Laboratory Results - last 24 hr 09/13/19 09/13/19 09/13/19 20:50 20:50 20:50 WBC 9.66 RBC 4.78 Hgb 14.3 POC Hgb Hct 41.4 L POC Hct MCV 86.6 MCH 29.9 MCHC 34.5 RDW Std Deviation 41.4 RDW Coeff of Abigail 12.9 Plt Count 216 MPV 10.2 Immature Gran % (Auto) 0.6 Neut % (Auto) 84.5 Lymph % (Auto) 8.4 [place] % (Auto) 6.1 Eos % (Auto) 0.2 Baso % (Auto) 0.2 Immature Gran # (Auto) 0.06 H Neut # (Auto) 8.16 H Lymph # (Auto) 0.81 L [place] # (Auto) 0.59 Eos # (Auto) 0.02 Baso # (Auto) 0.02 PT 11.6 INR 1.1 APTT 26.8 PTT Ratio 1.0 POC Sodium Sodium 132 L POC Potassium Potassium 3.6 POC Chloride Chloride 101 Carbon Dioxide 21 POC Total CO2 Anion Gap 10.0 POC Anion Gap POC BUN BUN 15 Creatinine 1.12 POC Creatinine Est Cr Clr Drug Dosing 55.2 Est GFR ( Amer) 73.0 Est GFR (Non-Af Amer) 63.0 BUN/Creatinine Ratio 13.7 Glucose 212 H POC Glucose POC Glucose (other) Estimat Average Glucose Hemoglobin A1c Calcium 8.6 POC Ioniz Calcium Franklyn Magnesium 1.9 Total Bilirubin 0.6 AST 12 L ALT 20 Alkaline Phosphatase 64 Troponin I < 0.015 Total Protein 6.5 Albumin 3.6 Globulin 2.9 Albumin/Globulin Ratio 1.2 Triglycerides Cholesterol LDL Cholesterol, Calc VLDL Cholesterol, Calc HDL Cholesterol Cholesterol/HDL Ratio TSH 0.419 Urine Color Urine Appearance Urine pH Ur Specific [place] Urine Protein Urine Glucose (UA) Urine Ketones Urine Blood Urine Nitrite Urine Bilirubin Urine Urobilinogen Ur Leukocyte Esterase Urine WBC (Auto) Urine RBC (Auto) U Hyaline Cast (Auto) U Epithel Cells (Auto) Urine Bacteria (Auto) 09/13/19 09/13/19 09/13/19 20:53 20:54 21:20 WBC RBC Hgb POC Hgb 13.9 L Hct POC Hct 41 L MCV MCH MCHC RDW Std Deviation RDW Coeff of Abigail Plt Count MPV Immature Gran % (Auto) Neut % (Auto) Lymph % (Auto) [place] % (Auto) Eos % (Auto) Baso % (Auto) Immature Gran # (Auto) Neut # (Auto) Lymph # (Auto) [place] # (Auto) Eos # (Auto) Baso # (Auto) PT INR APTT PTT Ratio POC Sodium 132 L Sodium POC Potassium 3.7 Potassium POC Chloride 100 L Chloride Carbon Dioxide POC Total CO2 20 L Anion Gap POC Anion Gap 17.0 POC BUN 15 BUN Creatinine POC Creatinine 0.9 Est Cr Clr Drug Dosing Est GFR ( Amer) Est GFR (Non-Af Amer) BUN/Creatinine Ratio Glucose POC Glucose 204 H POC Glucose (other) 210 H Estimat Average Glucose Hemoglobin A1c Calcium POC Ioniz Calcium Frank[place] 1.15 Magnesium Total Bilirubin AST ALT Alkaline Phosphatase Troponin I Total Protein Albumin Globulin Albumin/Globulin Ratio Triglycerides Cholesterol LDL Cholesterol, Calc VLDL Cholesterol, Calc HDL Cholesterol Cholesterol/HDL Ratio TSH Urine Color Yellow Urine Appearance Clear Urine pH 7.5 Ur Specific [place] 1.039 H Urine Protein 2+ H Urine Glucose (UA) 1+ H Urine Ketones 1+ H Urine Blood Negative Urine Nitrite Negative Urine Bilirubin Negative Urine Urobilinogen Negative Ur Leukocyte Esterase Negative Urine WBC (Auto) 1-5 Urine RBC (Auto) 0-4 U Hyaline Cast (Auto) 0 U Epithel Cells (Auto) 10-20 H Urine Bacteria (Auto) Negative 09/14/19 09/14/19 09/14/19 01:04 04:23 04:23 WBC 14.00 H RBC 5.39 Hgb 16.5 POC Hgb Hct 45.8 POC Hct MCV 85.0 MCH 30.6 MCHC 36.0 RDW Std Deviation 39.7 RDW Coeff of Abigail 12.9 Plt Count 240 MPV 10.8 H Immature Gran % (Auto) 0.4 Neut % (Auto) 86.9 Lymph % (Auto) 5.6 [place] % (Auto) 6.9 Eos % (Auto) 0.1 Baso % (Auto) 0.1 Immature Gran # (Auto) 0.06 H Neut # (Auto) 12.18 H Lymph # (Auto) 0.78 L [place] # (Auto) 0.96 H Eos # (Auto) 0.01 Baso # (Auto) 0.01 PT INR APTT PTT Ratio POC Sodium Sodium 133 L POC Potassium Potassium 3.4 L POC Chloride Chloride 101 Carbon Dioxide 22 POC Total CO2 Anion Gap 10.0 POC Anion Gap POC BUN BUN 13 Creatinine 0.87 POC Creatinine Est Cr Clr Drug Dosing 71.1 Est GFR ( Amer) 96.5 Est GFR (Non-Af Amer) 83.2 BUN/Creatinine Ratio 15.1 Glucose 126 H POC Glucose 165 H POC Glucose (other) Estimat Average Glucose Hemoglobin A1c Calcium 9.4 POC Ioniz Calcium [place] Magnesium Total Bilirubin AST ALT Alkaline Phosphatase Troponin I Total Protein Albumin Globulin Albumin/Globulin Ratio Triglycerides 97 Cholesterol 239 H LDL Cholesterol, Calc 176 VLDL Cholesterol, Calc 19 HDL Cholesterol 44 Cholesterol/HDL Ratio 5 TSH Urine Color Urine Appearance Urine pH Ur Specific [place] Urine Protein Urine Glucose (UA) Urine Ketones Urine Blood Urine Nitrite Urine Bilirubin Urine Urobilinogen Ur Leukocyte Esterase Urine WBC (Auto) Urine RBC (Auto) U Hyaline Cast (Auto) U Epithel Cells (Auto) Urine Bacteria (Auto) 09/14/19 09/14/19 04:23 05:44 WBC RBC Hgb POC Hgb Hct POC Hct MCV MCH MCHC RDW Std Deviation RDW Coeff of Abigail Plt Count MPV Immature Gran % (Auto) Neut % (Auto) Lymph % (Auto) [place] % (Auto) Eos % (Auto) Baso % (Auto) Immature Gran # (Auto) Neut # (Auto) Lymph # (Auto) [place] # (Auto) Eos # (Auto) Baso # (Auto) PT INR APTT PTT Ratio POC Sodium Sodium POC Potassium Potassium POC Chloride Chloride Carbon Dioxide POC Total CO2 Anion Gap POC Anion Gap POC BUN BUN Creatinine POC Creatinine Est Cr Clr Drug Dosing Est GFR ( Amer) Est GFR (Non-Af Amer) BUN/Creatinine Ratio Glucose POC Glucose 154 H POC Glucose (other) Estimat Average Glucose 108 Hemoglobin A1c 5.4 Calcium POC Ioniz Calcium [place] Magnesium Total Bilirubin AST ALT Alkaline Phosphatase Troponin I Total Protein Albumin Globulin Albumin/Globulin Ratio Triglycerides Cholesterol LDL Cholesterol, Calc VLDL Cholesterol, Calc HDL Cholesterol Cholesterol/HDL Ratio TSH Urine Color Urine Appearance Urine pH Ur Specific [place] Urine Protein Urine Glucose (UA) Urine Ketones Urine Blood Urine Nitrite Urine Bilirubin Urine Urobilinogen Ur Leukocyte Esterase Urine WBC (Auto) Urine RBC (Auto) U Hyaline Cast (Auto) U Epithel Cells (Auto) Urine Bacteria (Auto) Critical Care Time Critical Care Time: Yes Total Critical Care Time: 25 This involves time spent providing direct care involving, examination, consultation with neurologist, discussing with patient and family (1) Speech disturbance Speech disturbance type: dysarthria Qualified Code(s): R47.1 - Dysarthria and anarthria (2) Hypertension Hypertension type: unspecified Qualified Code(s): I10 - Essential (primary) hypertension
--- NOTE | 2019-09-14 11:08 | CT Scan Report ---
CT head/brain wo con CT DOSE: 1228.53 mGy.cm HISTORY: Mental status change Dysphagia, Dyarthria. CVA TECHNIQUE: Multiaxial CT images of the head were performed without the use of intravenous contrast. A dose lowering technique was utilized adhering to the principles of ALARA. Comparison: 09/13/2019 Findings: Several small polyps of the inferior maxillary sinuses. Remaining sinuses are clear. Density characteristics of the cerebellar as well as cerebral hemispheres indicate components of age- related atrophy as well as chronic small vessel change. 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 There is no evidence for acute intracranial hemorrhage. There is no midline shift. Impression: 1. Chronic and age-related change. 2. No change compared to the prior study. ACT 112: Negative or not required by law. The above report was generated using voice recognition software. It may contain grammatical, syntax or spelling errors. Electronically signed by: Cole Noguera M.D. 09/14/2019 11:06 AM
--- NOTE | 2019-09-14 11:55 | Electrocardiogram Report ---
Test Reason : Blood Pressure : / mmHG Vent. Rate : 086 BPM Atrial Rate : 086 BPM P-R Int : 142 ms QRS Dur : 086 ms QT Int : 364 ms P-R-T Axes : 067 057 074 degrees QTc Int : 435 ms Normal sinus rhythm Normal ECG No previous ECGs available Confirmed by Jose Marshall ([id number]) on 09/14/2019 11:54:50 AM Referred By: REFERRED SELF Confirmed By:Greyson Marshall
--- NOTE | 2019-09-14 12:34 | Neurology Consultation ---
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 Outside the window for IV TPA. CTA head and neck showed right vertebral artery occlusion. CT head negative for hemorrhage. MRI brain pending. 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 Supportive measure including NG tube and aspiration precautions. Recommend dual antiplaltlet for 21-days then ASA 81 mg daily. Patient was NOT on ASA at home per him. Permissive hypertension for with gradual reduction. Avoid hypotension. SBP goal 160-180 mm HG for now. STAT CTA head and neck for acute change in mental status. Neuro checks q2h. GENERAL SURGEON consult. Repeat chest Xray tmr. History of Present Illness Attending Physician: Gabby Thomas MD History of Present Illness A 78-year-old male with past medical history COPD, hypertension, chronic kidney disease stage III, generalized anxiety disorder, history of prostate cancer admitted due to dizziness and balance issues for a few days. Yesterday 1944, the patient suddenly had difficulties with speech. He was leaning to the right side when he stood and he was brought in here and stroke alert was called. He was not a stroke TPA candidate as he was outside the window for IV tpa. CT of the head was unremarkable. 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 Focal high grade stenosis at the P1 segment of the right posterior cerebral artery. Neck CTA, no evidence of hemodynamically significant carotid artery stenosis. Later, the called and said that recently psych medications are changed and she was thinking mostly the psych medications causing the symptoms, ER tried IV Benadryl for any dystonia reaction from his psych meds. Allergies Allergy/AdvReac Type Severity Reaction Status Date / Time No Known Allergies Allergy Unverified 09/13/19 22:14 Home Medications Home Medications Medication Instructions Recorded Confirmed Type albuterol sulfate [Ventolin HFA] 2 puff INHALATION QID PRN 09/13/19 09/13/19 History buspirone 15 mg PO BID 09/13/19 09/13/19 History clomipramine 25 mg PO UD 09/13/19 09/13/19 History fluticasone propion-salmeterol 1 inh INHALATION BID 09/13/19 09/13/19 History [Wixela Inhub] lisinopril 10 mg PO DAILY 09/13/19 09/13/19 History propranolol 10 mg PO DAILY PRN 09/13/19 09/13/19 History risperidone 0.25 mg PO BID 09/13/19 09/13/19 History sildenafil 50 mg PO UD PRN 09/13/19 09/13/19 History tiotropium bromide [Spiriva 2 puff INHALATION DAILY 09/13/19 09/13/19 History Respimat] trazodone 50 mg PO HS PRN 09/13/19 09/13/19 History triamcinolone acetonide 1 applic TOPICAL DAILY PRN 09/13/19 09/13/19 History venlafaxine 75 mg PO BID 09/13/19 09/13/19 History Patient History Medical History Depression Hypertension Social History Preferred Language: Citizen Of [place] Communication Ability: Effective [place] Lead Required: No Beliefs That Will Affect Care: None Current Living Situation: Spouse Other Information That Helps Us Care for You: No Feels Safe at Home: Yes Safety Concerns: Feels Safe At This Time Smoking Status: Former smoker Do You Dip or Chew Tobacco: No ; Smoking End Date: 2002 ; Second Hand Exposure: No ; Tobacco Cessation Education Requested by Patient: No Hx Alcohol Use: No Hx Substance Use: No Physical Exam Physical Exam: Patient appears acutely ill. In mild distress with re-breather on. Has significant secretions. Speech is incomprehensible. Following commands. Right ptosis. Right pupils is small then the left. Face is symmetric with re-breather. Sensation equal on both side of the face. Moving all 4 extremities equally. No ataxia with finger to nose. Results & Data Vital Signs (Past 12 Hours) Vital Signs Temp Pulse Pulse Resp BP BP Pulse Ox 09/14/19 12:08 36.5 C 84 16 189/90 H 98 09/14/19 11:14 108 H 09/14/19 07:54 36.4 C L 106 H 20 201/107 H 209/109 H 86 L 09/14/19 03:51 36.4 C L 93 H 20 180/106 H 93 09/14/19 01:44 48 L 09/14/19 01:42 78 09/14/19 01:36 192/101 H 09/14/19 00:38 36.3 C L 74 22 203/109 H 96 09/14/19 00:33 36.6 C 80 20 203/[address] Head: 1. Chronic and age-related change. 2. No change compared to the prior study. CTA head and neck: 1. There is no hemorrhage, mass effect, or evidence of acute territorial ischemia by CT criteria noting angiographic phase technique. 2. 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 This is reconstituted via retrograde flow just below the basilar. 3. There is high-grade stenosis at the origin of the right vertebral artery. 4. There is no evidence of hemodynamically significant carotid artery stenosis. The left vertebral artery is patent. 5. The intracranial vessels are patent. 6. There is focal high-grade stenosis of the P1 segment of the right posterior cerebral artery. 7. Emphysema. 8. Enlarged, heterogeneous, and multinodular thyroid gland.
[2019-09-14] MEDS: SCOPOLAMINE 1.5 MG TDSY TD SCH (17:13)
[2019-09-14] MEDS ORDERED: MoRPHine SULFATE 2 MG/ML CARP IV STA ×2 (21:31→22:18)
[2019-09-15] MEDS: CHECK SCOPOLAMINE PATCH PLACEMENT SCH ×2 (00:13→08:33)
[2019-09-15] MEDS: INSULIN ASPART 100 UNITS/ML 3 ML PEN SC SCH ×3 (00:13→12:25)
[2019-09-15] MEDS: SCOPOLAMINE 1.5 MG TDSY TD SCH (05:11)
[2019-09-15 07:36] LABS: Hemoglobin 16.4 g/dL (14.0-18.0); Mean Corpuscular Hemoglobin 30.8 pg (25-34); Mean Corpuscular Hgb Conc 34.9 g/dL (32-36); Mean Corpuscular Volume 88.2 fL (80-100); Mean Platelet Volume 10.3 fL (7.4-10.4); Platelet Count 234 K/uL (130-400); RDW Coefficient of Variation 13.4 % (11.5-14.5); RDW Standard Deviation 43.5 fL (36.4-46.3); Red Blood Count 5.33 M/uL (4.7-6.1); White Blood Count 21.65 K/uL (4.8-10.8)
[2019-09-15 07:37] LABS: Basophils # (auto) 0.01 K/uL (0-0.2); Immature Granulocytes # (auto) 0.06 K/uL (0.00-0.02); Immature Granulocytes % (auto) 0.3 %; Lymphocytes # (auto) 1.43 K/uL (1.2-3.4); Lymphocytes % (auto) 6.6 %; Monocytes # (auto) 1.45 K/uL (0.11-0.59); Monocytes % (auto) 6.7 %; Neutrophils % (auto) 86.4 %
[2019-09-15 07:52] LABS: BUN Creatinine Ratio 18.9 (10-20); Calcium 9.2 mg/dl (8.5-10.1); Creatinine Clr Calc Pharmacy 47.6 ml/min; Est GFR (Non-African American) 52.6; Potassium 4.2 mmol/L (3.5-5.1)
[2019-09-15] MEDS: FLUTICASONE/VILANTEROL 200/25MCG 14 PUFFS/INHALER INH SCH (08:32)
[2019-09-15] MEDS: ASPIRIN 300 MG SUPP PR SCH (08:33)
[2019-09-15] MEDS: UMECLIDINIUM BROMIDE 62.5MCG/BLISTER 7 PUFFS/INHALER INH SCH (08:33)
[2019-09-15] MEDS: SODIUM CHLORIDE 0.9% 1000ML 1,000 ML IV SCH (09:42)
[2019-09-15] MEDS ORDERED: PIPERACILL/TAZOBAC CONSULT ACTIVE PRN (11:25)
[2019-09-15] MEDS ORDERED: PIPERACILLIN/TAZOBACTAM 4.5 GM in DEXTROSE 5% 100 ML IV ONE (11:45)
[2019-09-15] MEDS ORDERED: PIPERACILLIN/TAZOBACTAM 3.375 GM in DEXTROSE 5% 100 ML IV SCH (16:00)
--- NOTE | 2019-09-15 16:28 | Communication Note ---
Date of Service: September 15, 2019 Patient is seen and examined at bedside this morning. He confirmed to me this morning that he prefers to continue to be DNI/DNR. Palliative care was co nsulted but was pending evaluation. Patient complained of shortness of breath, cough this morning. Procalcitonin was noted to be elevated. Empirically he was started on Zosyn. He continues to be aphasic. Follows commands appropriately. Patient's respiratory status deteriorated. Patient's is updated about the patient's condition. Patient rapidly deteriorated and at 1528. Sugar gan's is updated, all questions and concerns were addressed.
--- NOTE | 2019-09-15 16:28 | Discharge Summary ---
Date of Service September 15, 2019 Admission HPI Per Admitting Provider CHIEF COMPLAINT: Stroke-like symptoms. HISTORY OF PRESENT ILLNESS: This is a 78-year-old male with past medical history significant for hyperlipidemia, prediabetes, COPD, chronic rhinitis, hypertension, chronic kidney disease stage III, nocturia, psoriasis, recurrent depression, erectile dysfunction, generalized anxiety disorder, history of prostate cancer, history of mixed obsessional thoughts and acts, who lives with his , was brought in because of stroke-like symptoms. The patient was having some dizziness and balance issues for a few days. Today in the evening around 1945, the patient suddenly had difficulties with speech. He was leaning to the right side when he stood and he was brought in here and stroke alert was called. Except for difficulties speaking, the patient's other cognitive function is fine and he was able to obey commands and moves extremities. He was not a stroke TPA candidate as because of symptoms are going on for a few days. As per [place] neurologist question of some small midline stroke. CT of the head was unremarkable. 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 Focal high grade stenosis at the P1 segment of the right posterior cerebral artery. Neck CTA, no evidence of hemodynamically significant carotid artery stenosis. Later, the called and said that recently psych medications are changed and she was thinking mostly the psych medications causing the symptoms, ER tried IV Benadryl for any dystonia reaction from his psych meds. Currently resting comfortably and hemodynamically stable. Initially blood pressure was high, received labetalol. Neurology recommended to keep his systolic blood pressure greater 160-170. Except for his speech difficulties and some difficulty swallowing, he is doing fine, resting comfortably. He had some headache today. His gazes still towards to the right side and he has some blurred vision. Denies any earache, no runny nose, no sore throat, no cough, no fever, no chills, no chest pain, no shortness of breath, was with some mild nausea, no vomiting, no abdominal pain. Otherwise, normal bowel and bladder movements. No rash. Although the speech is not clear, he was able to answer the questions. Admission Exam Per Admitting Provider PHYSICAL EXAMINATION: GENERAL: The patient is of moderate build, not in acute distress. VITAL SIGNS: Temperature 36, pulse 65, respiratory rate 20, blood pressure 187/93, oxygen 99% room air. HEENT: Head atraumatic. Gaze to the right side. Pupils equal, round, and reactive to light. NECK: No neck masses. Supple. CARDIOVASCULAR: S1, S2, regular rate and rhythm, no murmur, no gallop. RESPIRATORY SYSTEM: Normal AP diameter. No accessory muscle use. No wheezing, no crackles. ABDOMEN: Soft, bowel sounds present, nontender. No distention. CENTRAL NERVOUS SYSTEM: Alert and oriented. Speech is slurred. Power 5/5 in all extremities. No pronator drift. Able to lift and hold his lower extremities. [id number] test normal. Jpkoaz-eg-[id number] test normal. Coordination of movement normal. Sensation is intact. Position sense intact. EXTREMITIES: No edema, no erythema. 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 No change compared to the prior study. CXR:Minimal right basilar opacity.Mild cardiomegaly without evidence for pulmonary edema. Neck CTA:There is no hemorrhage, mass effect, or evidence of acute territorial ischemia by CT criteria noting angiographic phase technique. 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 This is reconstituted via retrograde flow just below the basilar. There is high-grade stenosis at the origin of the right vertebral artery. There is no evidence of hemodynamically significant carotid artery stenosis. The left vertebral artery is patent. The intracranial vessels are patent. There is focal high-grade stenosis of the P1 segment of the right posterior cerebral artery. Emphysema. Enlarged, heterogeneous, and multinodular thyroid gland. Head CTA:There is no hemorrhage, mass effect, or evidence of acute territorial ischemia by CT criteria noting angiographic phase technique. 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 This is reconstituted via retrograde flow just below the basilar. There is high-grade stenosis at the origin of the right vertebral artery. There is no evidence of hemodynamically significant carotid artery stenosis. The left vertebral artery is patent. The intracranial vessels are patent. There is focal high-grade stenosis of the P1 segment of the right posterior cerebral artery. Emphysema. Enlarged, heterogeneous, and multinodular thyroid gland. 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 Patient stated he does not want to be resuscitated or intubated but is ok with all other care. CXR at this time does not show any aspirations. Patient is at high risk for aspiration. Will continue aspiration precautions and oxygen supplementation Will continue [place] aspirin for now Discussed with Neurologist Dr Le. Will follow up Neurologist's rec ommendation Continue permissive hypertension fro now and get MRI as soon as able to. Continue all supportive care Shrestha for urine output monitoring Replete electrolytes I called and updated on patient's clinical situation Prognosis is guarded at this time (3) Hypertension: Allow permissive hypertension as discussed above Patient is seen and examined at bedside this morning. He confirmed to me this morning that he prefers to continue to be DNI/DNR. Palliative care was consulted but was pending evaluation. Patient complained of shortness of breath, cough this morning. Procalcitonin was noted to be elevated. Empirically he was started on Zosyn. He continues to be aphasic. Follows commands appropriately. Patient's respiratory status deteriorated. Patient's is updated about the patient's condition. Patient rapidly deteriorated and at 1528. Patient's is updated, all questions and concerns were addressed. Total Time Total Time Spent Total Time Spent (In Minutes): 40 Discharge Plan Discharge Items Patient Disposition: Reason For Visit: STROKE LIKE SYMPTOMS Condition on Discharge: Fair Follow-up/Referrals: Gomez Swenson MD [Primary Care Provider] - Admission Data Admit Date/Time: 09/13/19 23:45
== END 2019-09-15 15:28 | disposition expired | DRG 64 ==
LOC: ED 20:29 → 2S 23:45 → SUATTDRO 23:45 → 2S 09-14 00:08